=== PATIENT | female | born 2000 | race Caucasian/White ===

== ENCOUNTER 2021-07-17 19:18 | Emergency (ER) | payer OTHER ==
[~2021-07-17] VITALS: Ht 162.5 cm; Wt 75.0 kg
[2021-07-17 20:34] LABS: BILIRUBIN,URINE NEGATIVE (NEGATIVE); CLARITY,URINE CLEAR; COLOR,URINE YELLOW; GLUCOSE, URINE (UA) NEGATIVE (NEGATIVE); KETONES,URINE NEGATIVE (NEGATIVE); LEUKOCYTE ESTERASE ,URINE NEGATIVE (NEGATIVE); NITRITE,URINE NEGATIVE (NEGATIVE); PROTEIN,URINE NEGATIVE (NEGATIVE)
[2021-07-17 20:53] LABS: BACTERIA,URINE TRACE /HPF; RBC,URINE RARE /HPF; SQUAMOUS EPITHELIAL CELL,UR 0-2 /HPF; WBC,URINE RARE /HPF
[2021-07-17] MEDS ORDERED: FAMOTIDINE 20 MG (PEPCID) TABLET PO STA (21:16)
--- NOTE | 2021-07-17 21:29 | ED Abdominal Pain ---
General Chief Complaint: Abdominal/GI Problems Stated Complaint: ABD PAIN Nursing Triage Note: PT ARRIVAL TO ER TONIGHT WITH COMPLAINT OF ABDOMINAL PAIN TODAY THAT HURTS ALL OVER. PT STATES THAT SHE STARTED A NEW PRE WORKOUT TUESDAY, AND HAD SOME PALPITAITONS AND TACHYCARDIA YESTERDAY AND TODAY HER STOMACH HAS HURT. PT STATES THAT SHE HAS HAD MULTIPLE BM'S TODAY WITH TWO BEING DIARRHEA. PT STATES THAT THIS IS ABNORMAL FOR HER. PT DENIES CHEST PAIN. Source of Information: Patient Exam Limitations: No Limitations History of Present Illness Date Seen by Provider: July 17, 2021 Time Seen by Provider: 20:58 Initial Comments Patient to the ER with her mother and chief complaint that she took some preworkout supplements about 130 this afternoon and has had 3 episodes of stool one of them being a diarrhea and no blood in it as well as severe abdominal cramping making her double over. Most of her pain is below the umbilicus and bilateral. She does not have a history of abdominal surgeries or colonoscopy but she does have a history of irritable bowel syndrome and was evaluated by Dr. Olmos. She is not having any nausea or vomiting. She says the pain was so severe it doubled her over. She says by time she got here it had slowed down. She is having some palpitations and sweats while she was on the toilet. This concerned her so she came to the ER. No other significant medical history. The preworkout supplement had 100 mg caffeine per tablet, 100 mg of capsaicin, yohimbe and some apple cider vinegar and other ingredients. Allergies and Home Medications Allergies Coded Allergies: No Known Drug Allergies (Unverified , 07/17/21) Patient Home Medication List Home Medication List Reviewed: Yes Review of Systems Review of Systems Constitutional: No chills, No diaphoresis EENTM: No Blurred Vision, No Double Vision Respiratory: Denies Cough, Denies Shortness of Air Cardiovascular: See HPI; Denies Chest Pain, Denies Lightheadedness; Palpitations; Denies Syncope Gastrointestinal: Denies Abdomen Distended; Abdominal Pain; Denies Constipated; Diarrhea; Denies Nausea Genitourinary: Denies Burning, Denies Discharge Musculoskeletal: No back pain, No joint pain All Other Systems Reviewed Negative Unless Noted: Yes Past Kummjgn-Dkltyv-Jxabyh Hx Patient Social History Tobacco Use?: No Use of E-Cig and/or Vaping dev: No Substance use?: No Alcohol Use?: No Immunizations Up To Date Influenza Vaccine Up-to-Date: Yes; Up-to-Date First/Initial COVID19 Vaccinat: 04/03 Second COVID19 Vaccination Aidan: 05/04 COVID19 Vaccine Security Coordinator: NARCISO Physical Exam Vital Signs Vital Signs - First Documented 07/17/21 20:11 Temp 35.9 Pulse 82 Resp 18 B/P (MAP) 108/77 (87) Pulse Ox 98 O2 Delivery Room Air Capillary Refill : Less Than 3 Seconds Height/Weight/BMI Height: '" Weight: lbs. oz. kg; 28.00 BMI Method: General Appearance: WD/WN, no apparent distress HEENT: PERRL/EOMI, normal ENT inspection, pharynx normal Neck: full range of motion, supple, normal inspection Respiratory: lungs clear, normal breath sounds, no respiratory distress, no accessory muscle use Cardiovascular: normal peripheral pulses, regular rate, rhythm Gastrointestinal: normal bowel sounds, soft, no organomegaly, tenderness (Bilateral lower quadrants without Rovsing sign, McBurney's point tenderness or mesenteric signs. No psoas sign) Extremities: normal range of motion, non-tender, normal capillary refill Neurologic/Psychiatric: alert, normal mood/affect, oriented x 3 Skin: normal color, warm/dry Progress/Results/Core Measures Results/Orders Lab Results Laboratory Tests Test 07/17/21 20:29 Range/Units Urine Color YELLOW Urine Clarity CLEAR Urine pH 6.0 5-9 Urine Specific [place] 1.020 1.016-1.022 Urine Protein NEGATIVE NEGATIVE Urine Glucose (UA) NEGATIVE NEGATIVE Urine Ketones NEGATIVE NEGATIVE Urine Nitrite NEGATIVE NEGATIVE Urine Bilirubin NEGATIVE NEGATIVE Urine Urobilinogen 0.2 < = 1.0 MG/DL Urine Leukocyte Esterase NEGATIVE NEGATIVE Urine RBC (Auto) NEGATIVE NEGATIVE Urine RBC RARE /HPF Urine WBC RARE /HPF Urine Squamous Epithelial Cells 0-2 /HPF Urine Crystals NONE /LPF Urine Bacteria TRACE /HPF Urine Casts NONE /LPF Urine Mucus SMALL H /LPF Urine Culture Indicated NO My Orders Orders - GINI JACOBS Ua Culture If Indicated (07/17/21 20:15) Urine Bedside (07/17/21 20:15) Ekg Tracing (07/17/21 21:15) Continuous Ekg Monitoring (07/17/21 21:15) Cbc With Automated Diff (07/17/21 21:15) Comprehensive Metabolic Panel (07/17/21 21:15) Hs C Reactive Protein (07/17/21 21:15) Lipase (07/17/21 21:15) Lidocaine 2% Viscous 15 Ml (Xylocaine Vi (07/17/21 21:30) Famotidine Tablet (Pepcid Tablet) (07/17/21 21:16) Antacid Suspension (Mylanta Suspension (07/17/21 21:30) Medications Given in ED Current Medications Medications Dose Ordered Sig/Palmer Route Start Time Stop Time Status Last Admin Dose Admin Al Hydrox/Mg Hydrox/Simethicone 30 ml ONCE ONCE PO 07/17/21 21:30 07/17/21 21:31 DC 07/17/21 21:35 30 ML Lidocaine HCl 15 ml ONCE ONCE PO 07/17/21 21:30 07/17/21 21:31 DC 07/17/21 21:36 15 ML Vital Signs/I&O 07/17/21 20:11 Temp 35.9 Pulse 82 Resp 18 B/P (MAP) 108/77 (87) Pulse Ox 98 O2 Delivery Room Air Blood Pressure Mean: 87 Progress Progress Note : Time: 22:02 Progress Note We did offer to do labs, urine, EKG and keep her on the monitor. She is not having any changes and her vital signs are normal. Her abdominal exam is less concerning at this time. She says her pain is significantly improved just with time. They have declined any further invasive work-up so we have given him some return precautions and encouraged him to picker some antacids. She declined the GI cocktail. Departure Impression Primary Impression: Ingestion of nontoxic substance Qualified Codes: T65.91XA - Toxic effect of unspecified substance, accidental (unintentional), initial encounter Additional Impression: Noninfectious colitis Disposition: 01 HOME, SELF-CARE Condition: Stable Departure-Patient Inst. Decision time for Depature: 22:04 Referrals: NO,LOCAL PHYSICIAN (PCP/Family) Primary Care Physician Patient Instructions: Colitis (DC) Add. Discharge Instructions: If the pain returns you can use Pepcid or pantoprazole for acid reduction as well as some Maalox, Mylanta, Tums, Rolaids etc. You can also use Gas-X which may help reduce distention of your bowels and therefore pain. Drink plenty of fluids to stay hydrated. Return to the ER for intractable pain, vomiting or other worrisome symptoms. Symptoms should shannan in a day or 2. Please do not continue to use that particular supplement. All discharge instructions reviewed with patient and/or family. Voiced understanding. Work/School Note: Work Release Form Date Seen in the Emergency Department: July 17, 2021 Return to Work: July 18, 2021 Restrictions: No Restrictions GINI JACOBS July 17, 2021 21:29
[2021-07-17] MEDS ORDERED: ANTACID SUSP 30 ML UDC (MYLANTA) PO ONE (21:30)
[2021-07-17] MEDS ORDERED: LIDOCAINE 2% VISCOUS 15 ML UDC PO ONE (21:30)
[2021-07-17 22:10] VITALS: BP 110/68
== END 2021-07-17 22:10 | disposition home or self-care (01) ==
LOC: ER 19:24
DX: K52.1 Toxic gastroenteritis and colitis (principal); T50.905A Adverse effect of unspecified drugs, medicaments and biological substances, initial encounter
CPT/HCPCS: 81000; 84703; 99283